=== PATIENT | male | born 1965 | race Caucasian/White ===

== ENCOUNTER 2021-03-14 08:32 | Inpatient (IN) | payer MEDICAID, SELFPAY ==
[2021-03-14] VITALS (7 sets, daily range): BP systolic 116–177; BP diastolic 48–97; PULSE 62–86; RESP 11–24; TEMP 36.6–37.1; O2SAT 94–97; BMI 39.4
--- NOTE | ~2021-03-14 | CT_ITS ---
EXAMINATION: CT ABDOMEN AND PELVIS WITH CONTRAST CLINICAL INFORMATION: Diffuse abdominal pain. Vomiting. Elevated lipase. COMPARISON: None TECHNIQUE: Multidetector volumetric images were obtained from the superior aspect of the liver through the pubic symphysis following administration 85 mL of Omnipaque 350 intravenous contrast. Sagittal and coronal reformatted images were obtained on the technologist's workstation. Oral contrast: No This CT examination was performed using dose optimization techniques as appropriate, variously including the following: *Automated exposure control *Adjustment of mA and/or kV according to patient size (this includes techniques or standardized protocols for targeted exams where dose is matched to indication/reason for exam; i.e. extremities or head) *Use of iterative reconstruction technique DLP: 885 mGy-cm FINDINGS: LUNG BASES: The visualized lung bases are unremarkable. LIVER, GALLBLADDER, AND BILIARY TREE: The liver is in upper limits of normal for size. There is marked low-attenuation of the liver parenchyma consistent with hepatic steatosis. There is hypertrophy of the caudate lobe. No focal lesion is noted within the setting of underlying fatty infiltration. Gallbladder is physiologically distended. There is a hyperdense appearance of the gallbladder contents which may represent sludge in the gallbladder. No evidence of gallbladder wall thickening or pericholecystic inflammatory changes. No biliary ductal dilatation. PANCREAS: There is normal enhancement of the pancreatic parenchyma. No evidence of peripancreatic stranding or fluid. No pancreatic ductal dilatation or pancreatic parenchymal calcifications. No focal pancreatic mass. SPLEEN: Unremarkable. ADRENAL GLANDS: Unremarkable. KIDNEYS AND URETERS: The kidneys are normal in size, shape, and attenuation. No hydronephrosis, hydroureter, or calculi seen. No perinephric stranding. Multiple respiratory motion artifacts are present somewhat limiting the evaluation. A 2.4 x 1.7 x 1.9 cm hypodense cortical lesion in the posterior medial cortex of the left mid kidney is suspected (series 5 image 69, series 3 image 41). BLADDER: Unremarkable. GASTROINTESTINAL TRACT: There is mild scattered diverticulosis of the colon without evidence of acute diverticulitis. An appendix is normal. No evidence of colonic wall thickening or pericolonic fat stranding. The stomach is partially distended and grossly unremarkable. No abnormal small bowel dilatation is noted. ABDOMINAL WALL: No significant hernia is appreciated. LYMPH NODES: Normal. VASCULAR: The aortoiliac vessels are normal in caliber. Intra and extra hepatic portal venous system, splenic vein and SMV are well opacified. There is suggestion of from recanalization of the paraumbilical vein. Small distal periesophageal varices are suspected. PELVIC VISCERA: Unremarkable. OSSEOUS STRUCTURES: No acute or suspicious osseous lesions. Degenerative disc disease is noted at L5-S1 with severe narrowing of the disc space and small marginal endplate osteophytes. There is severe narrowing of the bilateral neural foramina at L5-S1. Mild degenerative changes are noted in the visualized lower thoracic spine. CT/CT abdomen pelvis w con IMPRESSION: 1. No CT evidence of acute pancreatitis. The pancreas appears unremarkable. 2. Marked low-attenuation of the liver consistent with fatty infiltration/hepatic steatosis. There is hypertrophy of the caudate lobe. Recanalization of the paraumbilical vein is noted. Probable distal periesophageal minimal varices. 3. Questionable hypodense 2.4 cm lesion in the mid left kidney posteromedially. The finding is not well evaluated due to respiratory motion artifacts. Recommend correlation with renal ultrasound.
--- NOTE | 2021-03-14 08:53 | ECG_ITS ---
Test Reason : ETOH Blood Pressure : / mmHG Vent. Rate : 076 BPM Atrial Rate : 076 BPM P-R Int : 152 ms QRS Dur : 088 ms QT Int : 390 ms P-R-T Axes : 060 -07 024 degrees QTc Int : 438 ms Normal sinus rhythm Normal ECG No previous ECGs available Referred By: Kary Matias Electronically Signed By:Aj Celestin
--- NOTE | 2021-03-14 08:58 | ED_ITS ---
HPI - Alcohol General Chief Complaint: ETOH/Substance Use Stated Complaint: etoh withdrawal Time Seen by Provider: 03/14/21 08:53 Source: patient and EMS Mode of arrival: EMS Limitations: no limitations History of Present Illness HPI narrative: 55-year-old male with a history of AFib on metoprolol with no anticoagulation, hypertension, alcohol abuse here with reports of alcohol withdrawal. Patient tells me he drinks 1 L of vodka daily. He has been drinking for the last 8 days straight. He has not eaten much food or drink much water. He is last drink was 5 hours prior to arrival. He states I feel like I'm going to . He reports nausea, vomiting, tremor, diaphoresis, visual hallucinations. No suicidal thoughts. No additional substance use. Patient tells me he has had multiple admissions to the hospital for alcohol withdrawal. Denies any seizure history Related Data Home Medications Medication Instructions Recorded Confirmed acyclovir 400 mg tablet 1 tab PO DAILY 03/14/21 03/14/21 folic acid 1 mg tablet 1 tab PO DAILY 03/14/21 03/14/21 metoprolol succinate 100 mg 1 tab PO DAILY 03/14/21 03/14/21 tablet,extended release 24 hr omeprazole 20 mg capsule,delayed 1 cap PO DAILY@0630 03/14/21 03/14/21 release paroxetine HCl 30 mg tablet 30 mg PO BID 03/14/21 03/14/21 Allergies Allergy/AdvReac Type Severity Reaction Status Date / Time No Known Allergies Allergy Verified 03/14/21 08:53 Review of Systems Review of Systems: Yes all other systems are reviewed and are negative Constitutional: Constitutional: Reports no additional constitutional c omplaints, Denies body ache(s), Denies chills, Denies fever(s), Denies headache(s), Reports malaise and Denies weakness Comments: +sweating Eyes: Eyes: Reports no additional eye complaints and Denies change in vision ENT: Reports system reviewed and no additional complaints, except as documented, Denies dizziness, Denies headache(s), Denies nasal congestion, Denies nasal discharge and Denies neck pain Cardiovascular: Cardiovascular: Reports no additional cardiovascular complaints, Denies chest pain, Denies leg edema and Denies dyspnea Respiratory: Respiratory: Reports no additional respiratory complaints, Denies cough and Denies dyspnea Gastrointestinal: Gastrointestinal: Reports no additional gastrointestinal complaints, Denies abdominal pain, Denies diarrhea, Reports nausea and Reports vomiting Genitourinary: Genitourinary: Denies urinary incontinence Musculoskeletal: Musculoskeletal: Reports no additional musculoskeletal complaints, Denies back pain, Denies arthralgias, Denies joint swelling, Denies neck pain, Denies numbness and Denies tingling Integumentary/Breasts: Skin/Breast: Reports system reviewed and no additional complaints, except as docu and Denies rash Neurologic: Denies Abnormal speech present, Denies dizziness, Denies headache(s), Denies numbness, Denies tingling, Reports tremor(s) and Denies weakness PMFSH Past Medical History Attestation statement: The following information was validated with the patient. Source: old records reviewed and nursing notes reviewed Medical History Atrial fibrillation H/O ETOH abuse Hypertension Social History Social History Alcohol intake: current Alcohol intake frequency: 3 or more drinks per day Alcohol type: hard liquor Patient Tobacco Use Status: Tobacco use Unknown Use of substances other than those prescribed or required for medical reasons: No Advance Directives: No Advance Directives Information Provided: No Physical Exam Vital Signs: Vital Signs: Last Vital Signs Temp 98.0 F 03/14/21 15:06 Pulse 62 03/14/21 15:06 Resp 22 H 03/14/21 15:06 BP 116/74 03/14/21 15:06 Pulse Ox 94 03/14/21 15:06 BMI result Body Mass Index 39.4 Const: Other: Diaphoretic General: cooperative, healthy appearing, comfortable and no acute distress Orientation/consciousness: patient oriented x3 Limitations: no limitations HENMT: Head: Yes normal to inspection Ears: hearing grossly normal bilaterally and TM's normal bilaterally General nose exam: Normal external nose present Face and sinus: Yes normal facial exam Mouth: Normal oral and palatal mucosa present Throat: Yes posterior oropharynx normal, Yes tonsils normal and Yes uvula midline Eyes: General: appearance normal, both eyes and all related structures Pupils: Equal, round and reactive pupils present Neck: Neck: Yes normal visual inspection, Yes full ROM, Yes no lymphadenopathy and Yes no meningeal signs Chest: Chest palpation & inspection: normal inspection of the chest Resp: Effort & Inspection: normal respiratory effort Auscultation: clear to auscultation bilaterally Cardio: Rate: regular rate Rhythm: regular rhythm Peripheral pulses: Peripheral pulses 2+ throughout GI: Inspection: Yes normal to inspection Palpation (GI): Soft to palpation and nontender Auscultation: normal bowel sounds Back/Spine/Pelvis: Thoracic/Lumbar Spine: thoracic and lumbar spine normal to inspection Skin: General skin exam: no rashes or lesions noted Neuro: General: patient oriented x3, no meningeal signs, no focal motor deficits and normal sensation to monofilament Cranial nerves: Yes CN's II-XII intact bilaterally, Yes Equal, round and reactive pupils present, Yes Bilaterally intact EOM present, Yes Nystagmus not present, Yes Normal facial strength present and Yes Midline tongue present Cognition (Neuro): normal cognition Speech: No Abnormal speech present Gait exam (Neuro): Normal gait present Motor exam (neuro): 5/5 motor strength present throughout Extrem: Other: Bilateral hand tremor General: Yes normal to inspection, Yes no pedal edema and Yes no calf tenderness Course Course Course Narrative: 55-year-old male here with reports of alcohol withdrawal. On arrival the patient is hypertensive. His heart rate is normal but he is on metoprolol daily. He is tremulous and diaphoretic and reporting visual hallucinations. Nursing to obtain a CIWA score. Phenobarbital protocol ordered. Will check labs, EKG, drug screen. No suicidal thoughts. Patient is seeking detox. He may require admission 1000-anion gap acidosis likely secondary to alcohol use w/ elevated lactic acid. Not from underlying infection. This is from dehydration. 1130-Additional labs pending. CIWA now 9. +nausea/dry heaves. Will give zofran. Maintenance fluids, IV thiamine/folic acid/MVI. Anticipate admission. 1145-Patient actively vomiting. Will give second antiemetic. 1200-Elevated lipase. On exam diffuse AP w/ vomiting. May be secondary to alcohol withdrawal however consider pancreatitis. Will check CT A/P 1455-CT negative for pancreatitis. Plan for admit. Spoke to medicine team DR Chun [facility] - Alcohol Medical Records Attestation: I reviewed the patient's medical records. Lab Data Attestation: I reviewed the patient's lab results. Result diagrams: 03/14/21 09:19 03/14/21 14:12 Labs: Lab Results 03/14/21 03/14/21 03/14/21 Range/Units 09:19 09:19 09:19 WBC 10.9 H (4.8-10.8) X10*3/uL RBC 4.80 (4.60-5.80) X10*6/uL Hgb 15.0 (14.0-18.0) g/dl Hct 41.2 L (42.0-52.0) % MCV 85.8 (80.0-98.0) fL MCH 31.3 (27.0-33.0) pg MCHC 36.4 H (31.0-36.0) g/dl RDW 12.1 (11.0-16.0) % Plt Count 126 L (160-400) X10*3/uL MPV 8.6 L (9.4-12.4) fL Immature Gran % (Auto) 0.5 H (0.0-0.4) % Neut % (Auto) 81.4 H (45-73) % Lymph % (Auto) 8.7 L (20-40) % [place] % (Auto) 9.3 (2-11) % Eos % (Auto) 0.0 (0-4) % Baso % (Auto) 0.1 (0-2) % Lymph # (Auto) 1.0 L (1.2-4.9) X10*3/uL [place] # (Auto) 1.0 (0.1-1.2) X10*3/uL Eos # (Auto) 0.0 (0.0-0.4) X10*3/uL Baso # (Auto) 0.0 (0.0-0.2) X10*3/uL Abs Immat Gran (auto) 0.05 H (0.00-0.03) X10*3/uL Absolute Neuts (auto) 8.9 H (2.0-8.3) x10*3/uL Absolute Nucleated RBC 0.000 (0.0-0.012) X10*3/uL Nucleated RBC % (auto) 0.0 (0.0-0.2) /100WBC VBG pH (7.32-7.43) VBG pCO2 mmHg VBG pO2 mmHg VBG HCO3 (22-26) mmol/L VBG O2 Saturation % VBG Base Excess mmol/L Sodium 133 L (135-145) mmol/L Potassium 4.6 (3.3-5.1) mmol/L Chloride 99 (96-108) mmol/L Carbon Dioxide 14 L (22-29) mmol/L Anion Gap 25 H (12-20) BUN 28 H (9-16) mg/dL Creatinine 1.25 (0.5-1.4) mg/dL Estim Creat Clear Calc 89.5 Estimated GFR > 60 Random Glucose 111 (60-115) mg/dL Osmolality (281-305) mosm/kg Lactic Acid (0.5-2.0) mmol/L Calcium 9.4 (8.4-10.2) mg/dL Magnesium 2.5 (1.6-2.6) mg/dL Total Bilirubin 1.1 H (0.0-1.0) mg/dL Direct Bilirubin 0.5 (0.0-0.5) mg/dL AST 60 H (5-37) U/L ALT 65 H (0-40) U/L Alkaline Phosphatase 57 (39-117) U/L Total Protein 7.7 (6.5-8.0) g/dL Albumin 4.5 (3.5-5.0) g/dL Lipase 86 H (8-78) U/L Urine Opiates Screen (Not Detect) Urine Fentanyl Screen (Not Detect) Ur Barbiturates Screen (Not Detect) Ur Phencyclidine Scrn (Not Detect) Ur Amphetamines Screen (Not Detect) U Benzodiazepines Scrn (Not Detect) Urine Cocaine Screen (Not Detect) U Marijuana (THC) Screen (Not Detect) Ethyl Alcohol 108 mg/dL COVID-19 (DIYA) (Negative) COVID-19 Clin Com 03/14/21 03/14/21 03/14/21 Range/Units 09:19 11:21 11:21 WBC (4.8-10.8) X10*3/uL RBC (4.60-5.80) X10*6/uL Hgb (14.0-18.0) g/dl Hct (42.0-52.0) % MCV (80.0-98.0) fL MCH (27.0-33.0) pg MCHC (31.0-36.0) g/dl RDW (11.0-16.0) % Plt Count (160-400) X10*3/uL MPV (9.4-12.4) fL Immature Gran % (Auto) (0.0-0.4) % Neut % (Auto) (45-73) % Lymph % (Auto) (20-40) % [place] % (Auto) (2-11) % Eos % (Auto) (0-4) % Baso % (Auto) (0-2) % Lymph # (Auto) (1.2-4.9) X10*3/uL [place] # (Auto) (0.1-1.2) X10*3/uL Eos # (Auto) (0.0-0.4) X10*3/uL Baso # (Auto) (0.0-0.2) X10*3/uL Abs Immat Gran (auto) (0.00-0.03) X10*3/uL Absolute Neuts (auto) (2.0-8.3) x10*3/uL Absolute Nucleated RBC (0.0-0.012) X10*3/uL Nucleated RBC % (auto) (0.0-0.2) /100WBC VBG pH (7.32-7.43) VBG pCO2 mmHg VBG pO2 mmHg VBG HCO3 (22-26) mmol/L VBG O2 Saturation % VBG Base Excess mmol/L Sodium (135-145) mmol/L Potassium (3.3-5.1) mmol/L Chloride (96-108) mmol/L Carbon Dioxide (22-29) mmol/L Anion Gap (12-20) BUN (9-16) mg/dL Creatinine (0.5-1.4) mg/dL Estim Creat Clear Calc Estimated GFR Random Glucose (60-115) mg/dL Osmolality 310 H (281-305) mosm/kg Lactic Acid 3.0 H* (0.5-2.0) mmol/L Calcium (8.4-10.2) mg/dL Magnesium (1.6-2.6) mg/dL Total Bilirubin (0.0-1.0) mg/dL Direct Bilirubin (0.0-0.5) mg/dL AST (5-37) U/L ALT (0-40) U/L Alkaline Phosphatase (39-117) U/L Total Protein (6.5-8.0) g/dL Albumin (3.5-5.0) g/dL Lipase (8-78) U/L Urine Opiates Screen (Not Detect) Urine Fentanyl Screen (Not Detect) Ur Barbiturates Screen (Not Detect) Ur Phencyclidine Scrn (Not Detect) Ur Amphetamines Screen (Not Detect) U Benzodiazepines Scrn (Not Detect) Urine Cocaine Screen (Not Detect) U Marijuana (THC) Screen (Not Detect) Ethyl Alcohol mg/dL COVID-19 (DIYA) Negative (Negative) COVID-19 Clin Com See Note 03/14/21 03/14/21 03/14/21 Range/Units 11:27 11:40 14:12 WBC (4.8-10.8) X10*3/uL RBC (4.60-5.80) X10*6/uL Hgb (14.0-18.0) g/dl Hct (42.0-52.0) % MCV (80.0-98.0) fL MCH (27.0-33.0) pg MCHC (31.0-36.0) g/dl RDW (11.0-16.0) % Plt Count (160-400) X10*3/uL MPV (9.4-12.4) fL Immature Gran % (Auto) (0.0-0.4) % Neut % (Auto) (45-73) % Lymph % (Auto) (20-40) % [place] % (Auto) (2-11) % Eos % (Auto) (0-4) % Baso % (Auto) (0-2) % Lymph # (Auto) (1.2-4.9) X10*3/uL [place] # (Auto) (0.1-1.2) X10*3/uL Eos # (Auto) (0.0-0.4) X10*3/uL Baso # (Auto) (0.0-0.2) X10*3/uL Abs Immat Gran (auto) (0.00-0.03) X10*3/uL Absolute Neuts (auto) (2.0-8.3) x10*3/uL Absolute Nucleated RBC (0.0-0.012) X10*3/uL Nucleated RBC % (auto) (0.0-0.2) /100WBC VBG pH 7.31 L (7.32-7.43) VBG pCO2 29 mmHg VBG pO2 92 mmHg VBG HCO3 15 L (22-26) mmol/L VBG O2 Saturation 96.0 % VBG Base Excess -9.6 mmol/L Sodium 131 L (135-145) mmol/L Potassium 4.3 (3.3-5.1) mmol/L Chloride 100 (96-108) mmol/L Carbon Dioxide 15 L (22-29) mmol/L Anion Gap 20 (12-20) BUN 29 H (9-16) mg/dL Creatinine 1.19 (0.5-1.4) mg/dL Estim Creat Clear Calc 94.0 Estimated GFR > 60 Random Glucose 96 (60-115) mg/dL Osmolality (281-305) mosm/kg Lactic Acid (0.5-2.0) mmol/L Calcium 8.3 L D (8.4-10.2) mg/dL Magnesium (1.6-2.6) mg/dL Total Bilirubin (0.0-1.0) mg/dL Direct Bilirubin (0.0-0.5) mg/dL AST (5-37) U/L ALT (0-40) U/L Alkaline Phosphatase (39-117) U/L Total Protein (6.5-8.0) g/dL Albumin (3.5-5.0) g/dL Lipase (8-78) U/L Urine Opiates Screen Not Detected (Not Detect) Urine Fentanyl Screen Not Detected (Not Detect) Ur Barbiturates Screen POSITIVE H (Not Detect) Ur Phencyclidine Scrn Not Detected (Not Detect) Ur Amphetamines Screen Not Detected (Not Detect) U Benzodiazepines Scrn Not Detected (Not Detect) Urine Cocaine Screen Not Detected (Not Detect) U Marijuana (THC) Screen Not Detected (Not Detect) Ethyl Alcohol mg/dL COVID-19 (DIYA) (Negative) COVID-19 Clin Com Imaging Data CT scan - abdomen: Attestation: I personally reviewed and interpreted this imaging study as follows: Radiologist's impression: IMPRESSION: ? 1. No CT evidence of acute pancreatitis. The pancreas appears unremarkable. ? 2. Marked low-attenuation of the liver consistent with fatty infiltration/hepatic steatosis. There is hypertrophy of the caudate lobe. Recanalization of the paraumbilical vein is noted. Probable distal periesophageal minimal varices. ? 3. Questionable hypodense 2.4 cm lesion in the mid left kidney posteromedially. The finding is not well evaluated due to respiratory motion artifacts. Recommend correlation with renal ultrasound. ECG Data ECG #1: Attestation: I personally reviewed and interpreted this ECG as follows: ECG interpretation date: 03/14/21 ECG interpretation time: 09:30 Interpretation: NSR with rate 76, normal pr, normal qrs, normal qt Discharge Plan Discharge Clinical Impression: Alcohol withdrawal syndrome, Alcoholic ketoacidosis Patient Disposition: Admitted As Inpatient
[2021-03-14] MEDS: PHENobarbitaL sodium 130 MG/ML VIAL 292.5 MG IM (09:23)
[2021-03-14 09:24] LABS: MANUAL DIFF FLAG NO
[2021-03-14 09:25] LABS: Basophils Percent Auto 0.1 % (0-2); Hematocrit 41.2 % (42.0-52.0); Imm Gran Abs Auto 0.05 X10*3/uL (0.00-0.03); Imm Gran Pct Auto 0.5 % (0.0-0.4); Lymphocytes Percent Auto 8.7 % (20-40); Mean Corpuscular HGB Conc 36.4 g/dl (31.0-36.0); Mean Corpuscular Hemoglobin 31.3 pg (27.0-33.0); Mean Corpuscular Volume 85.8 fL (80.0-98.0); Mean Platelet Volume 8.6 fL (9.4-12.4); Monocytes Percent Auto 9.3 % (2-11); Neutrophils Absolute Auto 8.9 x10*3/uL (2.0-8.3); Neutrophils Percent Auto 81.4 % (45-73); Platelet Count 126 X10*3/uL (160-400); Red Cell Distribution Width 12.1 % (11.0-16.0); White Blood Count 10.9 X10*3/uL (4.8-10.8)
[2021-03-14 09:39] LABS: Ethanol 108 mg/dL
[2021-03-14 09:47] LABS: Alanine Aminotransferase 65 U/L (0-40); Albumin Level 4.5 g/dL (3.5-5.0); Alkaline Phosphatase 57 U/L (39-117); Anion Gap 25 (12-20); Aspartate Amino Transferase 60 U/L (5-37); Bilirubin Direct 0.5 mg/dL (0.0-0.5); Bilirubin Total 1.1 mg/dL (0.0-1.0); Blood Urea Nitrogen 28 mg/dL (9-16); Calcium 9.4 mg/dL (8.4-10.2); Carbon Dioxide 14 mmol/L (22-29); Chloride 99 mmol/L (96-108); Creatinine Clr Calc Pharmacy 89.5; Estimated Glomerular Filt Rate > 60; Glucose Random 111 mg/dL (60-115); Magnesium 2.5 mg/dL (1.6-2.6); Potassium 4.6 mmol/L (3.3-5.1); Sodium 133 mmol/L (135-145); Total Protein 7.7 g/dL (6.5-8.0)
--- NOTE | 2021-03-14 09:55 | PHA.MEDREC ---
Pharmacy Consult ? Medication Reconciliation Pharmacy has completed the medication reconciliation. Spoke with patient in the ED. Patient only took Metoprolol and Paroxetine today. He knew all medications he was taking.
[2021-03-14] MEDS: 0.9 % Sodium Chloride 1,000 ML 999 ML IV (10:03)
[2021-03-14 10:12] LABS: COVID-19 Test Negative (Negative)
[2021-03-14] MEDS: ondansetron HCL 4 MG/2 ML VIAL IVPUSH (11:17)
--- NOTE | 2021-03-14 11:28 | PC.NURSE ---
given zofran for nausea. having some visual hallucinations reported, sts seeing crayong writing on ceiling . pt otherwise alert and oriented. ambulating to and from bathroom w steady gait for ua spec.
[2021-03-14 11:32] LABS: Venous Blood Gas Refer to POC result
[2021-03-14 11:33] LABS: VBG Base Excess -9.6 mmol/L; VBG HCO3 15 mmol/L (22-26); VBG pCO2 29 mmHg; VBG pH 7.31 (7.32-7.43); VBG pO2 92 mmHg
[2021-03-14 11:44] LABS: Osmolality, Serum 310 mosm/kg (281-305)
[2021-03-14 11:58] LABS: Lipase 86 U/L (8-78)
[2021-03-14 12:20] LABS: Amphetamine Screen Urine Not Detected (Not Detect); Barbiturates, Urine POSITIVE (Not Detect); Benzodiazepines Screen Urine Not Detected (Not Detect); Cannabinoid Screen Urine Not Detected (Not Detect); Cocaine Screen Urine Not Detected (Not Detect); Fentanyl, urine Not Detected (Not Detect); Opiate Screen Urine Not Detected (Not Detect); Phencyclidine Screen Urine Not Detected (Not Detect)
[2021-03-14] MEDS: iohexoL 350 MG/ML 100 ML INFUS..BTL 85 ML IV (13:07)
[2021-03-14] MEDS: Folic Acid 1 MG in 0.9 % Sodium Chloride 50 ML 100.4 MG IV (13:17)
[2021-03-14] MEDS: Thiamine HCL 100 MG in 0.9 % Sodium Chloride 100 ML 202 MG IV (13:17)
[2021-03-14] MEDS: 0.9 % Sodium Chloride 1,000 ML 250 ML IVCONT (13:18)
[2021-03-14 13:25] LABS: Reflex Lactate? Lactic Acid Added
[2021-03-14 14:44] LABS: Anion Gap 20 (12-20); Blood Urea Nitrogen 29 mg/dL (9-16); Calcium 8.3 mg/dL (8.4-10.2); Carbon Dioxide 15 mmol/L (22-29); Chloride 100 mmol/L (96-108); Estimated Glomerular Filt Rate > 60; Glucose Random 96 mg/dL (60-115); Potassium 4.3 mmol/L (3.3-5.1); Sodium 131 mmol/L (135-145)
[2021-03-14] MEDS: Multivitamin TABLET 1 TAB PO (14:48)
[2021-03-14] MEDS: PHENobarbitaL sodium 130 MG/ML VIAL 221 MG IM ×2 (14:48→18:33)
--- NOTE | 2021-03-14 15:06 | PC.NURSE ---
pt continues to rest, denies increased tremors, hallucinations or s/s of etoh withdrawal. awaiting inpt admission.
--- NOTE | 2021-03-14 15:56 | P.HPHOSP_ITS ---
History of Present Illness Date of Service: 03/14/21 Chief Complaint: alcohol withdrawal 55-year-old man with history of heavy alcohol abuse presents to the ER with complaints of alcohol withdrawal symptoms including shakiness, tremulousness. He reports over the last few weeks he has been drinking heavily including at least a Liter of vodka a day. He reports that he had been sober for about 6 months when offered him a drink. He reported poor appetite. Denied any history of alcohol withdrawal seizures. Denies any recent illness, recent travel, chest pain, shortness breath, nausea, vomiting diarrhea. In the ER his sodium was noted to be low at 131, initial lactic acid 3.0, bicarb 15, total bili 1.1. COVID-19 negative[address]dominal and pelvic CT negative for acute pancreatitis. He was started on phenobarbital, given IV fluids, Zofran, thiamine, folic acid, multivitamin. He will be admitted for further management and treatment of acute alcohol withdrawal. Review of Systems Verdana 4l Review of Systems: Verdana 4d Verdana 4d Denies any recent fever chills or decrease in appetite respiratory denies any shortness of breath coverage production cardiovascular denied chest pain gastrointestinal denies any dysphagia abdominal pain nausea vomiting or diarrhea genitourinarygenitourinary denies any dysuria frequency or hematuria musculoskeletal denies any joint pain or swelling neuropsych denies any weakness or seizures all other systems reviewed are negative [facility] Medical History (Updated 03/14/21 @ 17:09 by Sandra Jaeger NP) Atrial fibrillation H/O ETOH abuse Hypertension Family History (Updated 03/14/21 @ 17:04 by Sandra Jaeger NP) Father Hypertension Mother Rheumatoid arthritis Surgical History (Updated 03/14/21 @ 17:05 by Sandra Jaeger NP) H/O hernia repair Social History (Updated 03/14/21 @ 17:04 by Sandra Jaeger NP) Alcohol intake: current Alcohol intake frequency: other Alcohol type: hard liquor and other Patient Tobacco Use Status: Tobacco use Unknown Use of substances other than those prescribed or required for medical reasons: No Advance Directives: No Advance Directives Information Provided: No Meds Allergies Allergy/AdvReac Type Severity Reaction Status Date / Time No Known Allergies Allergy Verified 03/14/21 08:53 Active Medications: Current Medications Acetaminophen (Acetaminophen 325 Mg Tablet) 650 mg PO Q6H PRN PRN Reason: Pain, Mild (Pain Scale 1-3) Heparin Sodium (Porcine) (Heparin Sodium,Porcine 5,000 Unit/Ml Vial) 5,000 unit SUBCUT Q12H [facility] Sodium Chloride (Ns) 1,000 mls @ 250 mls/hr IVCONT .Q4H [facility] Stop: 03/14/21 15:59 Last Admin: 03/14/21 13:18 Dose: 250 mls/hr Documented by: Medication (No Benzodiazepines) 1 each MISCELLANE DAILY [facility] Ondansetron HCl (Ondansetron Hcl 4 Mg/2 Ml Vial) 4 mg IVPUSH Q8H PRN PRN Reason: Nausea and Vomiting Pharmacy Consult (Consult Rx Perform Med Rec) 1 each MISCELLANE ONCE PRN PRN Reason: Consult order Phenobarbital (Phenobarbital 15 Mg Tablet) 45 mg PO BID [facility]; Protocol Stop: 03/16/21 09:01 Phenobarbital (Phenobarbital 30 Mg Tablet) 30 mg PO BID [facility] Stop: 03/18/21 09:01 Phenobarbital (Phenobarbital 30 Mg Tablet) 30 mg PO DAILY [facility]; Protocol Stop: 03/20/21 09:01 Phenobarbital Sodium (Phenobarbital Sodium 130 Mg/Ml Vial) 221 mg IM Q3H [facility]; Protocol Stop: 03/14/21 18:01 Last Admin: 03/14/21 14:48 Dose: 221 mg Documented by: Sodium Chloride (0.9 % Sodium Chloride Flush 3 Ml Syringe) 3 ml IVFLUSH QSHIFT [facility] Home Medications Medication Instructions Recorded Confirmed Last Taken Type acyclovir 400 mg 1 tab PO DAILY 03/14/21 03/14/21 03/13/21 History tablet folic acid 1 mg 1 tab PO DAILY 03/14/21 03/14/21 03/13/21 History tablet metoprolol 1 tab PO DAILY 03/14/21 03/14/21 03/14/21 History succinate 100 mg tablet,extended release 24 hr omeprazole 20 mg 1 cap PO 03/14/21 03/14/21 03/13/21 History capsule,delayed DAILY@0630 release paroxetine HCl 30 30 mg PO BID 03/14/21 03/14/21 03/14/21 History mg tablet Physical Exam Verdana 4l Vital Signs and Narrative: Verdana 4d Verdana 4d Vital Signs: Verdana 4d Verdana 4Bd Last Vital Signs Verdana 4d [employer] New 4d [employer] 4d Temp 98.0 F 03/14/21 15:06 [employer] 4d Pulse 62 03/14/21 15:06 [facility] H 03/14/21 15:06 BP 116/74 03/14/21 15:06 Pulse Ox 94 03/14/21 15:06 BMI result Body Mass Index 39.4 Appearing in no acute distress head is normocephalic atraumatic eyes pupils are PERRLA sclera is anicteric mouth throat mucous membranes are intact and moist neck is supple no lymphadenopathy, no JVD noted lung sounds are clear to auscultation heart regular rate rhythm, clear S1, S2 positive bowel sounds, abdomen is soft, nontender neuro patient is alert x3, no focal deficits Results Labs CBC and Chem 7: 03/14/21 09:19 03/14/21 14:12 Labs: Laboratory Results - last 24 hr 03/14/21 03/14/21 03/14/21 09:19 09:19 09:19 MCV 85.8 MCH 31.3 MCHC 36.4 H RDW 12.1 Plt Count 126 L MPV 8.6 L Immature Gran % (Auto) 0.5 H Neut % (Auto) 81.4 H Lymph % (Auto) 8.7 L [place] % (Auto) 9.3 Eos % (Auto) 0.0 Baso % (Auto) 0.1 Lymph # (Auto) 1.0 L [place] # (Auto) 1.0 Eos # (Auto) 0.0 Baso # (Auto) 0.0 Abs Immat Gran (auto) 0.05 H Absolute Neuts (auto) 8.9 H Absolute Nucleated RBC 0.000 Nucleated RBC % (auto) 0.0 VBG pH VBG pCO2 VBG pO2 VBG HCO3 VBG O2 Saturation VBG Base Excess Anion Gap 25 H Estim Creat Clear Calc 89.5 Estimated GFR > 60 Random Glucose 111 Osmolality Lactic Acid Calcium 9.4 Magnesium 2.5 Total Bilirubin 1.1 H Direct Bilirubin 0.5 AST 60 H ALT 65 H Alkaline Phosphatase 57 Total Protein 7.7 Albumin 4.5 Lipase 86 H Urine Opiates Screen Urine Fentanyl Screen Ur Barbiturates Screen Ur Phencyclidine Scrn Ur Amphetamines Screen U Benzodiazepines Scrn Urine Cocaine Screen U Marijuana (THC) Screen Ethyl Alcohol 108 COVID-19 (DIYA) COVID-19 Clin Com 03/14/21 03/14/21 03/14/21 09:19 11:21 11:21 MCV MCH MCHC RDW Plt Count MPV Immature Gran % (Auto) Neut % (Auto) Lymph % (Auto) [place] % (Auto) Eos % (Auto) Baso % (Auto) Lymph # (Auto) [place] # (Auto) Eos # (Auto) Baso # (Auto) Abs Immat Gran (auto) Absolute Neuts (auto) Absolute Nucleated RBC Nucleated RBC % (auto) VBG pH VBG pCO2 VBG pO2 VBG HCO3 VBG O2 Saturation VBG Base Excess Anion Gap Estim Creat Clear Calc Estimated GFR Random Glucose Osmolality 310 H Lactic Acid 3.0 H* Calcium Magnesium Total Bilirubin Direct Bilirubin AST ALT Alkaline Phosphatase Total Protein Albumin Lipase Urine Opiates Screen Urine Fentanyl Screen Ur Barbiturates Screen Ur Phencyclidine Scrn Ur Amphetamines Screen U Benzodiazepines Scrn Urine Cocaine Screen U Marijuana (THC) Screen Ethyl Alcohol COVID-19 (DIYA) Negative COVID-19 [employer] Com See Note 03/14/21 03/14/21 03/14/21 11:27 11:40 14:12 MCV MCH MCHC RDW Plt Count MPV Immature Gran % (Auto) Neut % (Auto) Lymph % (Auto) [place] % (Auto) Eos % (Auto) Baso % (Auto) Lymph # (Auto) [place] # (Auto) Eos # (Auto) Baso # (Auto) Abs Immat Gran (auto) Absolute Neuts (auto) Absolute Nucleated RBC Nucleated RBC % (auto) VBG pH 7.31 L VBG pCO2 29 VBG pO2 92 VBG HCO3 15 L VBG O2 Saturation 96.0 VBG Base Excess -9.6 Anion Gap 20 Estim Creat Clear Calc 94.0 Estimated GFR > 60 Random Glucose 96 Osmolality Lactic Acid Calcium 8.3 L D Magnesium Total Bilirubin Direct Bilirubin AST ALT Alkaline Phosphatase Total Protein Albumin Lipase Urine Opiates Screen Not Detected Urine Fentanyl Screen Not Detected Ur Barbiturates Screen POSITIVE H Ur Phencyclidine Scrn Not Detected Ur Amphetamines Screen Not Detected U Benzodiazepines Scrn Not Detected Urine Cocaine Screen Not Detected U Marijuana (THC) Screen Not Detected Ethyl Alcohol COVID-19 (DIYA) COVID-19 Clin Com Imaging Radiologist's Impressions: Impressions Abdomen/Pelvis CT 03/14/21 13:16 IMPRESSION: 1. No CT evidence of acute pancreatitis. The pancreas appears unremarkable. 2. Marked low-attenuation of the liver consistent with fatty infiltration/hepatic steatosis. There is hypertrophy of the caudate lobe. Recanalization of the paraumbilical vein is noted. Probable distal periesophageal minimal varices. 3. Questionable hypodense 2.4 cm lesion in the mid left kidney posteromedially. The finding is not well evaluated due to respiratory motion artifacts. Recommend correlation with renal ultrasound. Assessment and Plan (1) Alcohol withdrawal syndrome: Status: Acute (2) Alcoholic ketoacidosis: Status: Acute (3) Paroxysmal A-fib: Status: Acute 55-year-old man admitted with alcohol withdrawal symptoms. Alcohol withdrawal Started on phenobarbital Continue folic acid, thiamine, multivitamin, ppi IV fluids Care team consultation HypoNatremia. Likely secondary to alcohol use IV fluids recheck sodium this evening Alcoholic ketoacidosis. Secondary to heavy alcohol use and poor oral intake. History of Paroxysmalatrial fibrillation On metoprolol, not on anticoagulants DVT prophylaxis with heparin Attending Dr. Chun Full code Quality Stroke Does the patient have a stroke diagnosis?: No VTE Prior VTE?: No VTE Risk Level:: Medical - moderate - high VTE Device Contraindication: Treatment Not Indicated VTE Drug Contraindication: N/A - Med Ordered
--- NOTE | 2021-03-14 16:17 | MHC.RECOVSUP ---
? Reason for consult:Alcohol o?? Current location ED-16? o?? Identified substance use concern Alcoh ?? Withdrawal ?? Support ? Intervent o?? Community resources provided o?? Harm reduction discussion ? Plan o?? Follow up tomorrow? o?? Patient to follow up with [facility] after discharge ? Additional information: ?Met with Pt. He stated that has been drinking for awhile. Wants to stop states that his drinking is effecting his health. Spoke to . she states that he is getting admitted to the hospital.Told Pt. information that the told me . Will follow up with Pt. while he is in the hospital. Also will inform Care Team on what we talked about.
[2021-03-14 17:00] LABS: ~Lactic Acid-LAB USE ONLY 1.2 mmol/L (0.5-2.0)
[2021-03-14] MEDS: Heparin Sodium,Porcine 5,000 UNIT/ML VIAL 5000 UNIT SUBCUT (17:24)
--- NOTE | 2021-03-14 17:46 | PC.NURSE ---
PT CONTINUES TO SHOW SIGNS OF VH, PROVIDER AWARE. PT STILL ALERT AND ORIENTED, SHOWING INCREASED FOREHEAD PERSPIRATION AND MILD IRRITATION. CIWA COMPLETED.
[2021-03-14] MEDS: HaloperidoL 1 MG TABLET 2 MG PO (18:33)
--- NOTE | 2021-03-14 20:40 | PC.NURSE ---
assumed care of pt at 1900 - redressed IV as IVf unable to run d/t pts positioning. pt asleep at this time, was woken to complete CIWA. pt reports VH of things crawling on the fraser - CIWA score a 10. pt oriented to time and place. continues to await inpatient bed
[2021-03-14] MEDS: Acetaminophen 325 MG TABLET 650 MG PO (21:26)
[2021-03-14] MEDS: PHENobarbitaL 15 MG TABLET 45 MG PO (21:26)
[2021-03-15] VITALS (8 sets, daily range): BP systolic 108–159; BP diastolic 51–94; PULSE 55–79; RESP 17–24; TEMP 36.2–37.1; O2SAT 93–97
[2021-03-15] MEDS: 0.9 % Sodium Chloride Flush 3 ML SYRINGE IVFLUSH ×3 (01:46→15:30)
--- NOTE | 2021-03-15 01:49 | PC.NURSE ---
pt resting, no sign of distress or withdrawal at this. Will continue to monitor.
--- NOTE | 2021-03-15 01:51 | PC.NURSE ---
no sign of self harm at this time.
[2021-03-15] MEDS: ondansetron HCL 4 MG/2 ML VIAL IVPUSH ×2 (05:14→15:19)
[2021-03-15 07:28] LABS: Prothrombin Time 11.4 SEC (9.9-13.0)
[2021-03-15 07:31] LABS: Basophils Percent Auto 0.5 % (0-2); Eosinophils Absolute Auto 0.1 X10*3/uL (0.0-0.4); Eosinophils Percent Auto 1.3 % (0-4); Hematocrit 39.1 % (42.0-52.0); Hemoglobin 13.6 g/dl (14.0-18.0); Imm Gran Abs Auto 0.02 X10*3/uL (0.00-0.03); Imm Gran Pct Auto 0.5 % (0.0-0.4); Lymphocytes Percent Auto 25.8 % (20-40); MANUAL DIFF FLAG SCAN; Mean Corpuscular HGB Conc 34.8 g/dl (31.0-36.0); Mean Corpuscular Hemoglobin 30.8 pg (27.0-33.0); Mean Corpuscular Volume 88.5 fL (80.0-98.0); Mean Platelet Volume 9.5 fL (9.4-12.4); Monocytes Absolute Auto 0.6 X10*3/uL (0.1-1.2); Monocytes Percent Auto 14.5 % (2-11); Neutrophils Absolute Auto 2.3 x10*3/uL (2.0-8.3); Neutrophils Percent Auto 57.4 % (45-73); PLT CLUMP 1; Red Blood Count 4.42 X10*6/uL (4.60-5.80); Red Cell Distribution Width 12.3 % (11.0-16.0); SCAN SMEAR FLAG 1
[2021-03-15 07:50] LABS: Anion Gap 16 (12-20); Blood Urea Nitrogen 27 mg/dL (9-16); Calcium 8.7 mg/dL (8.4-10.2); Carbon Dioxide 19 mmol/L (22-29); Chloride 101 mmol/L (96-108); Creatinine Clr Calc Pharmacy 98.1; Estimated Glomerular Filt Rate > 60; Glucose Random 77 mg/dL (60-115); Magnesium 2.6 mg/dL (1.6-2.6); Potassium 3.7 mmol/L (3.3-5.1); Sodium 132 mmol/L (135-145)
[2021-03-15 07:55] LABS: Platelet Count 90 X10*3/uL (160-400)
[2021-03-15 07:56] LABS: SLIDE REVIEW VERIFIED
[2021-03-15] MEDS: PHENobarbitaL 15 MG TABLET 45 MG PO ×2 (08:20→20:46)
[2021-03-15] MEDS: Heparin Sodium,Porcine 5,000 UNIT/ML VIAL 5000 UNIT SUBCUT (08:20)
--- NOTE | 2021-03-15 08:25 | PC.NURSE ---
pt sleeping soundly. vss.
[2021-03-15 08:36] LABS: White Blood Count 3.9 X10*3/uL (4.8-10.8)
--- NOTE | 2021-03-15 11:49 | P.PNIM_ITS ---
Subjective Subjective Date of Service: 03/15/21 <Sandra Jaeger NP - Last Filed: 03/15/21 13:14> 03/26/21 <Bruce Ortiz DO - Last Filed: 03/26/21 18:09> Review of Systems Follow up Alcohol withdrawl Feeling better today, still a little shaky No further hallucinations <Sandra Jaeger NP - Last Filed: 03/15/21 13:14> Physical Exam Vital Signs: Vital Signs: Last Vital Signs Temp 98.1 F 03/15/21 02:09 Pulse 58 03/15/21 08:24 Resp 22 H 03/15/21 08:24 BP 108/59 L 03/15/21 08:24 Pulse Ox 93 03/15/21 08:24 BMI result Body Mass Index 39.4 <Sandra Jaeger NP - Last Filed: 03/15/21 13:14> Appearing in no acute distress lung sounds are clear to auscultation heart regular rate rhythm, clear S1, S2 positive bowel sounds, abdomen is soft, nontender neuro patient is alert x3, no focal deficits <Sandra Jaeger NP - Last Filed: 03/15/21 13:14> Objective Data Active Medications Acetaminophen (Acetaminophen 325 Mg Tablet) 650 mg PO Q6H PRN PRN Reason: Pain, Mild (Pain Scale 1-3) Last Admin: 03/14/21 21:26 Dose: 650 mg Documented by: SANDRA Heparin Sodium (Porcine) (Heparin Sodium,Porcine 5,000 Unit/Ml Vial) 5,000 unit SUBCUT Q12H [facility] Last Admin: 03/15/21 08:20 Dose: 5,000 unit Documented by: ELVA Medication (No Benzodiazepines) 1 each MISCELLANE DAILY [facility] Ondansetron HCl (Ondansetron Hcl 4 Mg/2 Ml Vial) 4 mg IVPUSH Q8H PRN PRN Reason: Nausea and Vomiting Last Admin: 03/15/21 05:14 Dose: 4 mg Documented by: VENTURA Pharmacy Consult (Consult Rx Perform Med Rec) 1 each MISCELLANE ONCE PRN PRN Reason: Consult order Phenobarbital (Phenobarbital 15 Mg Tablet) 45 mg PO BID [facility]; Protocol Stop: 03/16/21 09:01 Last Admin: 03/15/21 08:20 Dose: 45 mg Documented by: ELVA Phenobarbital (Phenobarbital 30 Mg Tablet) 30 mg PO BID [facility] Stop: 03/18/21 09:01 Phenobarbital (Phenobarbital 30 Mg Tablet) 30 mg PO DAILY [facility]; Protocol Stop: 03/20/21 09:01 Sodium Chloride (0.9 % Sodium Chloride Flush 3 Ml Syringe) 3 ml IVFLUSH QSHIFT [facility] Last Admin: 03/15/21 08:21 Dose: 3 ml Documented by: ELVA <Sandra Jaeger NP - Last Filed: 03/15/21 13:14> Labs CBC & Chem 7: : 03/15/21 07:00 03/16/21 05:41 <Sandra Jaeger NP - Last Filed: 03/15/21 13:14> Labs: Laboratory Results - last 24 hr 03/14/21 03/14/21 03/14/21 09:19 11:21 11:40 MCV MCH MCHC RDW Plt Count MPV Immature Gran % (Auto) Neut % (Auto) Lymph % (Auto) [place] % (Auto) Eos % (Auto) Baso % (Auto) Lymph # (Auto) [place] # (Auto) Eos # (Auto) Baso # (Auto) Abs Immat Gran (auto) Absolute Neuts (auto) Absolute Nucleated RBC Nucleated RBC % (auto) Smear Tech's Comments PT INR Anion Gap Estim Creat Clear Calc Estimated GFR Random Glucose Lactic Acid 3.0 H* Lactic Acid F/U @ 2Hr Calcium Magnesium Lipase 86 H Urine Opiates Screen Not Detected Urine Fentanyl Screen Not Detected Ur Barbiturates Screen POSITIVE H Ur Phencyclidine Scrn Not Detected Ur Amphetamines Screen Not Detected U Benzodiazepines Scrn Not Detected Urine Cocaine Screen Not Detected U Marijuana (THC) Screen Not Detected 03/14/21 03/14/21 03/15/21 14:12 16:36 07:00 MCV 88.5 MCH 30.8 MCHC 34.8 RDW 12.3 Plt Count 90 L D MPV 9.5 Immature Gran % (Auto) 0.5 H Neut % (Auto) 57.4 Lymph % (Auto) 25.8 [place] % (Auto) 14.5 H Eos % (Auto) 1.3 Baso % (Auto) 0.5 Lymph # (Auto) 1.0 L [place] # (Auto) 0.6 Eos # (Auto) 0.1 Baso # (Auto) 0.0 Abs Immat Gran (auto) 0.02 Absolute Neuts (auto) 2.3 Absolute Nucleated RBC 0.000 Nucleated RBC % (auto) 0.0 Smear Tech's Comments VERIFIED PT INR Anion Gap 20 Estim Creat Clear Calc 94.0 Estimated GFR > 60 Random Glucose 96 Lactic Acid Lactic Acid F/U @ 2Hr 1.2 Calcium 8.3 L D Magnesium Lipase Urine Opiates Screen Urine Fentanyl Screen Ur Barbiturates Screen Ur Phencyclidine Scrn Ur Amphetamines Screen U Benzodiazepines Scrn Urine Cocaine Screen U Marijuana (THC) Screen 03/15/21 03/15/21 03/15/21 07:00 07:00 07:00 MCV MCH MCHC RDW Plt Count MPV Immature Gran % (Auto) Neut % (Auto) Lymph % (Auto) [place] % (Auto) Eos % (Auto) Baso % (Auto) Lymph # (Auto) [place] # (Auto) Eos # (Auto) Baso # (Auto) Abs Immat Gran (auto) Absolute Neuts (auto) Absolute Nucleated RBC Nucleated RBC % (auto) Smear Tech's Comments PT 11.4 INR 1.0 Anion Gap 16 Estim Creat Clear Calc 98.1 Estimated GFR > 60 Random Glucose 77 Lactic Acid Lactic Acid F/U @ 2Hr Calcium 8.7 Magnesium 2.6 Lipase Urine Opiates Screen Urine Fentanyl Screen Ur Barbiturates Screen Ur Phencyclidine Scrn Ur Amphetamines Screen U Benzodiazepines Scrn Urine Cocaine Screen U Marijuana (THC) Screen <Sandra Jaeger NP - Last Filed: 03/15/21 13:14> Assessment and Plan (1) Alcohol withdrawal syndrome: Status: Resolved <Sandra Jaeger NP - Last Filed: 03/15/21 13:14> (2) Alcoholic ketoacidosis: Status: Resolved <Sandra Jaeger NP - Last Filed: 03/15/21 13:14> Assessment and Plan: 55-year-old man admitted with alcohol withdrawal symptoms.? Alcohol withdrawal Started on phenobarbital Continue folic acid, thiamine, multivitamin, ppi Care team consultation Haldol for hallucinations HypoNatremia.? Likely secondary to alcohol use, slowly trending up recheck sodium this evening Alcoholic ketoacidosis.? Secondary to heavy alcohol use and poor oral intake. History of Paroxysmalatrial fibrillation On metoprolol, not on anticoagulants DVT prophylaxis with heparin Attending Dr. Ortiz Full code <Sandra Jaeger NP - Last Filed: 03/15/21 13:14> 55-year-old man admitted with alcohol withdrawal symptoms.? Alcohol withdrawal Started on phenobarbital Continue folic acid, thiamine, multivitamin, ppi Care team consultation Haldol for hallucinations HypoNatremia.? Likely secondary to alcohol use, slowly trending up recheck sodium this evening Alcoholic ketoacidosis.? Secondary to heavy alcohol use and poor oral intake. History of Paroxysmalatrial fibrillation On metoprolol, not on anticoagulants DVT prophylaxis with heparin Attending Dr. Ortiz Full code I have personally examined the patient reviewed the chart. Agree with history physical assessment and plan as outlined by Ms. Jaeger <Bruce Ortiz DO - Last Filed: 03/26/21 18:09> Quality Stroke Does the patient have a stroke diagnosis?: No <Sandra Jaeger NP - Last Filed: 03/15/21 13:14> VTE Prior VTE?: No <Sandra Jaeger NP - Last Filed: 03/15/21 13:14> VTE Risk Level:: Medical - moderate - high <Sandra Jaeger NP - Last Filed: 03/15/21 13:14> VTE Device Contraindication: Treatment Not Indicated <Sandra Jaeger NP - Last Filed: 03/15/21 13:14> VTE Drug Contraindication: N/A - Med Ordered <Sandra Jaeger NP - Last Filed: 03/15/21 13:14>
--- NOTE | 2021-03-15 13:31 | MHC.RECOVRN ---
Met with pt in ED16 to discuss alcohol use. Pt reports drinking at least a fifth of vodka daily since 03/04/21. Prior to the 16th, pt had not had alcohol for nearly 6 months. Denies other substances. First drink age 9, began drinking heavily at age 17. Family hx of AUD (father). Longest period in recovery was [id number]; utilized AA and worked the program for years. [facility] admissions x 5. Hx disulfiram. Pt reports having many supportive people, most are friends. Pt reports mother is not a support, states Mom's an enabler. At this time patient would like to reconnect with AA and be referred to [facility] level of care. Pt provided with other recovery resources and supports, including information on medications for alcohol use disorder. CSS referrals made to [facility], [facility], and [facility]. Pt denies questions or concerns at this time. Will continue to follow.
--- NOTE | 2021-03-15 13:55 | MHC.CM.PN ---
pt lives alone in home. he reports that he is independent in his care. he drives a car and works a job. pt has friends and family that live in the area and can help him should he need it. this [place] include [place]. pt would benefit from being seen by the [facility] care team for etoh abuse. pt uses no AD c ambulation and has no svcs in the home. pt denies the need for vna svcs at dc. dc plan is home no svcs p being seen by [facility] care team. cm to cont. to follow.
[2021-03-15 14:11] LABS: Sodium 132 mmol/L (135-145)
[2021-03-15] MEDS: Acetaminophen 325 MG TABLET 650 MG PO (15:19)
[2021-03-15] MEDS: HaloperidoL 1 MG TABLET 2 MG PO (15:38)
[2021-03-15] MEDS: LORazepam 2 MG/ML VIAL 1 MG IVPUSH (18:35)
[2021-03-15] MEDS: 0.9 % Sodium Chloride 1,000 ML 125 ML IVCONT (18:43)
[2021-03-16] VITALS (7 sets, daily range): BP systolic 135–174; BP diastolic 58–99; PULSE 79–127; RESP 18–20; TEMP 36.3–37.1; O2SAT 92–97
[2021-03-16] MEDS: traZODone HCL 25 MG HALFTAB PO (01:50)
[2021-03-16 06:16] LABS: Anion Gap 12 (12-20); Blood Urea Nitrogen 11 mg/dL (9-16); Carbon Dioxide 23 mmol/L (22-29); Chloride 101 mmol/L (96-108); Creatinine Clr Calc Pharmacy 151.2; Estimated Glomerular Filt Rate > 60; Glucose Random 76 mg/dL (60-115); Potassium 3.2 mmol/L (3.3-5.1); Sodium 133 mmol/L (135-145)
[2021-03-16 06:17] LABS: Calcium 8.7 mg/dL (8.4-10.2); Magnesium 2.4 mg/dL (1.6-2.6)
[2021-03-16] MEDS: Potassium Chloride ER 20 MEQ TAB.ER.PRT 40 MEQ PO (07:47)
[2021-03-16] MEDS: PHENobarbitaL 15 MG TABLET 45 MG PO (07:47)
[2021-03-16] MEDS: ondansetron HCL 4 MG/2 ML VIAL IVPUSH (07:53)
[2021-03-16] MEDS: Metoprolol Tartrate 5 MG/5 ML VIAL IVPUSH (08:02)
[2021-03-16] MEDS: PARoxetine HCL 30 MG TABLET PO ×2 (08:02→20:22)
[2021-03-16] MEDS: Folic Acid 1 MG TABLET PO (08:02)
[2021-03-16] MEDS: Acyclovir 200 MG CAPSULE 400 MG PO (08:02)
[2021-03-16] MEDS: Heparin Sodium,Porcine 5,000 UNIT/ML VIAL 5000 UNIT SUBCUT ×2 (08:08→20:23)
[2021-03-16] MEDS: 0.9 % Sodium Chloride 1,000 ML 125 ML IVCONT ×3 (08:17→23:46)
--- NOTE | 2021-03-16 09:22 | ECG_ITS ---
Test Reason : rvr fib Blood Pressure : / mmHG Vent. Rate : 113 BPM Atrial Rate : 000 BPM P-R Int : 000 ms QRS Dur : 076 ms QT Int : 270 ms P-R-T Axes : 000 -41 015 degrees QTc Int : 370 ms Atrial fibrillation with rapid ventricular response Left axis deviation Inferior infarct , age undetermined Abnormal ECG When compared with ECG of 14-MAR-2021 09:30, Atrial fibrillation has replaced Sinus rhythm Vent. rate has increased BY 37 BPM Inferior infarct is now Present Referred By: Sandra Jaeger Electronically Signed By:Aj Celestin
--- NOTE | 2021-03-16 09:38 | HO.PM.IMPN ---
Subjective Subjective Date of Service: 03/16/21 Review of Systems Follow up Alcohol withdrawl now in afib Feeling better today, still a little shaky No further hallucinations Physical Exam Vital Signs: Vital Signs: Last Vital Signs Temp 97.4 F 03/16/21 07:41 Pulse 127 H 03/16/21 09:00 Resp 18 03/16/21 07:41 BP 144/99 H 03/16/21 07:41 Pulse Ox 94 03/16/21 07:41 BMI result Body Mass Index 39.4 Appearing in no acute distress lung sounds are clear to auscultation heart regular rate rhythm, clear S1, S2 positive bowel sounds, abdomen is soft, nontender neuro patient is alert x3, no focal deficits Objective Data Active Medications Acetaminophen (Acetaminophen 325 Mg Tablet) 650 mg PO Q6H PRN PRN Reason: Pain, Mild (Pain Scale 1-3) Last Admin: 03/15/21 15:19 Dose: 650 mg Documented by: JOSE DANIEL Acyclovir (Acyclovir 200 Mg Capsule) 400 mg PO DAILY [facility] Last Admin: 03/16/21 08:02 Dose: 400 mg Documented by: ABDIRASHID Folic Acid (Folic Acid 1 Mg Tablet) 1 mg PO DAILY [facility] Last Admin: 03/16/21 08:02 Dose: 1 mg Documented by: ABDIRASHID Heparin Sodium (Porcine) (Heparin Sodium,Porcine 5,000 Unit/Ml Vial) 5,000 unit SUBCUT Q12H [facility] Last Admin: 03/16/21 08:08 Dose: 5,000 unit Documented by: ABDIRASHID Sodium Chloride (Ns) 1,000 mls @ 125 mls/hr IVCONT .Q8H [facility] Last Admin: 03/16/21 08:17 Dose: 125 mls/hr Documented by: REYNALDO Medication (No Benzodiazepines) 1 each MISCELLANE DAILY [facility] Metoprolol Succinate (Metoprolol Succinate Er 100 Mg Tab.Er.24h) 100 mg PO DAILY [facility]; Protocol Last Admin: 03/16/21 08:09 Dose: Not Given Documented by: ABDIRASHID Non-Admin Reason: start tommorrow AM per Omeprazole (Omeprazole 20 Mg Capsule.) 20 mg PO DAILY@0630 [facility] Ondansetron HCl (Ondansetron Hcl 4 Mg/2 Ml Vial) 4 mg IVPUSH Q8H PRN PRN Reason: Nausea and Vomiting Last Admin: 03/16/21 07:53 Dose: 4 mg Documented by: DABTerri Paroxetine HCl (Paroxetine Hcl 30 Mg Tablet) 30 mg PO BID [facility] Last Admin: 03/16/21 08:02 Dose: 30 mg Documented by: ABDIRASHID Pharmacy Consult (Consult Rx Perform Med Rec) 1 each MISCELLANE ONCE PRN PRN Reason: Consult order Phenobarbital (Phenobarbital 30 Mg Tablet) 30 mg PO BID [facility] Stop: 03/18/21 09:01 Phenobarbital (Phenobarbital 30 Mg Tablet) 30 mg PO DAILY [facility]; Protocol Stop: 03/20/21 09:01 Sodium Chloride (0.9 % Sodium Chloride Flush 3 Ml Syringe) 3 ml IVFLUSH QSHIFT [facility] Last Admin: 03/16/21 07:06 Dose: Not Given Documented by: ABDIRASHID Non-Admin Reason: IV Running Labs CBC & Chem 7: 03/15/21 07:00 03/16/21 05:41 Labs: Laboratory Results - last 24 hr 03/16/21 05:41 Anion Gap 12 Estim Creat Clear Calc 151.2 Estimated GFR > 60 Random Glucose 76 Calcium 8.7 Magnesium 2.4 Microbiology Microbiology Results: Microbiology 03/14/21 11:40 Blood Culture - Preliminary Blood - Venous No growth after 24 hours. 03/14/21 11:21 Blood Culture - Preliminary Blood - Venous No growth after 24 hours. Assessment and Plan (1) Paroxysmal A-fib: Status: Acute (2) Alcohol withdrawal syndrome: Status: Acute Assessment and Plan: 55-year-old man admitted with alcohol withdrawal symptoms.? History of Paroxysmal atrial fibrillation, now in Afib RVR On metoprolol, not on anticoagulants One dose of IV BB did not break the RVR Start Cardizem drip now Alcohol withdrawal Started on phenobarbital Continue folic acid, thiamine, multivitamin, ppi Care team consultation Haldol for hallucinations HypoNatremia.? Likely secondary to alcohol use, slowly trending up Follow BMP Alcoholic ketoacidosis.? Secondary to heavy alcohol use and poor oral intake. DVT prophylaxis with heparin Attending Dr. Horton Full code Quality Stroke Does the patient have a stroke diagnosis?: No VTE Prior VTE?: No VTE Risk Level:: Medical - moderate - high VTE Device Contraindication: Treatment Not Indicated VTE Drug Contraindication: N/A - Med Ordered
--- NOTE | 2021-03-16 10:46 | ECG_ITS ---
Test Reason : converted to sinus Blood Pressure : / mmHG Vent. Rate : 093 BPM Atrial Rate : 093 BPM P-R Int : 146 ms QRS Dur : 082 ms QT Int : 346 ms P-R-T Axes : 064 -29 005 degrees QTc Int : 430 ms Sinus rhythm with Premature ventricular complexes Inferior infarct (cited on or before 16-MAR-2021) Abnormal ECG When compared with ECG of 16-MAR-2021 09:22, Sinus rhythm has replaced Atrial fibrillation Referred By: Sandra Jaeger Electronically Signed By:Aj Celestin
--- NOTE | 2021-03-16 10:54 | MHC.RECOVRN ---
Met with pt this morning to follow up regarding [facility] referrals. Pt aware referrals have been placed and continues to request placement after hospitalization. Pts information currently being reviewed by [facility] programs. Will continue to follow.
--- NOTE | 2021-03-16 10:59 | MHC.RECOVRN ---
Spoke with [facility], [facility] has available bed. Staff is reviewing patient's information and will determine acceptance. CM aware.
--- NOTE | 2021-03-16 14:22 | PC.NURSE ---
0800 pt heart rhythem went into A-Fib with heart rate from 115-140 , Sandra govea notified , and at bedside , new order iv metoprolol , EKG . 0930 pt converted back to sinus rhythm HR in 80s to low 90s another EKG done to confirm SR. Cardizem drip put on hold
[2021-03-16] MEDS: PHENobarbitaL 30 MG TABLET PO (20:22)
[2021-03-16] MEDS: traZODone HCL 50 MG TABLET PO (22:05)
[2021-03-17] VITALS: BP 159/77; PULSE 90; RESP 18; TEMP 36.9; O2SAT 96
[2021-03-17 04:00] VITALS: BP 189/94; PULSE 100; RESP 20; TEMP 37.1; O2SAT 97
[2021-03-17 04:05] VITALS: BP 162/72
--- NOTE | 2021-03-17 05:35 | PC.NURSE ---
pt refusing IV fluids, pt is drinking plenty of fluids and voiding. Dr. Yanet saldivar.
[2021-03-17] MEDS: Omeprazole 20 MG CAPSULE.DR PO (05:38)
[2021-03-17] MEDS: PARoxetine HCL 30 MG TABLET PO (07:09)
[2021-03-17] MEDS: PHENobarbitaL 30 MG TABLET PO (07:09)
[2021-03-17] MEDS: Folic Acid 1 MG TABLET PO (07:09)
[2021-03-17] MEDS: Acyclovir 200 MG CAPSULE 400 MG PO (07:09)
[2021-03-17] MEDS: Heparin Sodium,Porcine 5,000 UNIT/ML VIAL 5000 UNIT SUBCUT (07:09)
[2021-03-17 07:10] VITALS: BP 166/74; PULSE 103
[2021-03-17] MEDS: Metoprolol Succinate ER 100 MG TAB.ER.24H PO (07:10)
[2021-03-17 07:38] VITALS: BP 142/68; PULSE 87; RESP 18; TEMP 37.1; O2SAT 97
--- NOTE | 2021-03-17 09:05 | MHC.RECOVRN ---
[facility] bed no longer available due to COVID closure.
--- NOTE | 2021-03-17 10:59 | MHC.RECOVRN ---
[facility] unable to offer [facility] bed due to COVID closure. No bed availability through [facility]. Pt provided with list of [facility] numbers to follow up outpatient. CM and provider aware.
--- NOTE | 2021-03-17 11:29 | P.DS_ITS ---
DS: Providers Provider Date of Service: 03/17/21 Date of admission: 03/14/21 15:51 Primary care physician: Marine Felton NP Consults: 03/14/21 15:51 Consult to Care Team Routine Comment: Reason for consultation: alcohol abuse Attending physician on discharge: Miky Horton Discharging clinician: Sandra Jaeger DS: Diagnosis Discharge Diagnosis (1) Paroxysmal A-fib: Status: Acute (2) Alcohol withdrawal syndrome: Status: Acute DS: Summary Hospital Course Hospital Course: 55-year-old man with history of heavy alcohol abuse presents to the ER with complaints of alcohol withdrawal symptoms including shakiness, tremulousness.? He reports over the last few weeks he has been drinking heavily including [place] Liter of vodka a day.? He reports that he had been sober for about 6 months when offered him a drink.? He reported poor appetite.? Denied any history of alcohol withdrawal seizures.? Denies any recent illness, recent travel, chest pain, shortness breath, nausea, vomiting diarrhea.? In the ER his sodium was noted to be low at 131, initial lactic acid 3.0, bicarb 15, total bili 1.1.? COVID-19 negative.? Abdominal and pelvic CT negative for acute pancreatitis.? He was started on phenobarbital, given IV fluids, Zofran, thiamine,? folic acid, multivitamin.? He will be admitted for further management and treatment of acute alcohol withdrawal. History of Paroxysmal atrial fibrillation, now in Afib RVR On metoprolol, not on anticoagulants due to alcoholism and [id number] score 0 overnight episode of atrial fibrillation with rapid ventricular response, treated with IV metoprolol and then IV Cardizem, subsequently broke back into regular rhythm tachycardia. He needs to continue his metoprolol taking as prescribed Alcohol withdrawal Started on phenobarbital with good effect Continue folic acid, thiamine, multivitamin, ppi He was treated with Haldol twice for hallucinations Care team consultation recommended outpatient recovery programs as there were no inpatient programs available Avoid alcohol at all costs HypoNatremia.? Likely secondary to alcohol use, slowly trending up Labs on 03/22/21 to follow up Alcoholic ketoacidosis.?Resolved Secondary to heavy alcohol use and poor oral intake. Time Spent with Patient Time attestation: Total time spent providing and/or coordinating discharge services: Discharge coordination time: Greater than 30 minutes Quality: Stroke Does the patient have a stroke diagnosis?: No Physical Exam Vital Signs: Vital Signs: Last Vital Signs Temp 98.8 F 03/17/21 07:38 Pulse 87 03/17/21 07:38 Resp 18 03/17/21 07:38 BP 142/68 H 03/17/21 07:38 Pulse Ox 97 03/17/21 07:38 BMI result Body Mass Index 39.4 Appearing in no acute distress head is normocephalic atraumatic eyes pupils are PERRLA sclera is anicteric mouth throat mucous membranes are intact and moist neck is supple no lymphadenopathy, no JVD noted lung sounds are clear to auscultation heart regular rate rhythm, clear S1, S2 positive bowel sounds, abdomen is soft, nontender neuro patient is alert x3, no focal deficits DS: Data Data Completed and Pending Labs on day of discharge: Preliminary micro results at discharge 03/14/21 11:40 Blood Culture - Preliminary Blood - Venous No growth after 48 hours. 03/14/21 11:21 Blood Culture - Preliminary Blood - Venous No growth after 48 hours. Discharge Plan Discharge Anticipated Discharge Date/Time: 03/17/21 11:23 Patient Disposition: Home, Self-Care Discharge Diagnosis: Paroxysmal atrial fibrillation with rapid ventricular response Alcohol withdrawal syndrome Hyponatremia Alcoholic ketoacidosis Referrals: Marine Felton NP [Primary Care Provider] - 1 Week Discharge Medications: Continued metoprolol succinate 100 mg tablet extended release 24 hr 1 tab PO DAILY RF: 0 acyclovir 400 mg tablet 1 tab PO DAILY RF: 0 paroxetine HCl 30 mg tablet 30 mg PO BID RF: 0 omeprazole 20 mg capsule,delayed release(DR/EC) 1 cap PO DAILY@0630 RF: 0 folic acid 1 mg tablet 1 tab PO DAILY RF: 0 Discharge Orders: Discharge Order (Routine); Ordered 03/17/21 Ordered By: Sandra Jaeger Diet: advance to usual diet Activity on Discharge: As tolerated Stand Alone Forms: Patient Portal Discharge page Other Ambulatory Orders: Basic Metabolic Panel (Routine) Timeframe: [id number] Facility: [facility] - Location: Laboratory Ordered By: Sandra Jaeger Care Plan Goals: Do not drink alcohol Follow-up with recovery program Health Concerns: Paroxysmal atrial fibrillation with rapid ventricular response Alcohol withdrawal syndrome Hyponatremia Alcoholic ketoacidosis Plan of Treatment: Follow-up with primary care provider as needed Please use resources given to you by the recovery team for your alcohol cessation Please check labs on 03/22/21 Assessment: see discharge summary
[2021-03-17 11:32] VITALS: BP 170/90; PULSE 85; RESP 18; TEMP 36.3; O2SAT 98
--- NOTE | 2021-03-17 12:42 | MHC.CM.PN ---
PT DISCHARGING HOME, PT HAS BEEN PROVIDED W/INFO AND PROGRAMS TO CALL FOR [facility] BED BY [facility], PT WILL CALL TO ARRANGE TRANSPORT
== END 2021-03-17 13:14 | disposition home or self-care (01) | DRG 426 ==
LOC: HO.ED 14:47 → HO.EDOVER 16:08 → HO.S3 03-15 16:56
PROVIDERS: Nurse Practitioner Family; Admitting Provider Nurse Practitioner Acute Care; Emergency Provider Emergency Medicine; PCP Nurse Practitioner Family; Visit Provider Nurse Practitioner Acute Care
DX: E87.1 Hypo-osmolality and hyponatremia (principal); E87.2 Acidosis; I48.0 Paroxysmal atrial fibrillation; F10.139 Alcohol abuse with withdrawal, unspecified; Z20.822 Contact with and (suspected) exposure to COVID-19; Z79.899 Other long term (current) drug therapy
CPT/HCPCS: 36415; 74177; 80048; 80076; 80307; 82077; 82803; 83605; 83690; 83735; 83930; 84295; 85025; 85610; 87040; 87635; 93005; 96361; 96365; 96372; 96375; 99285; J2060; J2405; J2550; J2560; J3411; Q9967